=== PATIENT | male | born 1955 | race Caucasian/White ===

== ENCOUNTER → 2017-04-25 08:50 | Outpatient (CLI) | payer MEDICARE ==
[2013-08-06 14:57] VITALS: BMI 25.7
[~2017-04-25 08:50] MED LIST: ACTOS30 MG PO; ASPIRIN325 MG PO; AUGMENTIN1 TAB.SR . OR; GLIPIZIDE10 MG PO; LISINOPRIL10 MG PO; NIASPAN500 MG PO; NORCO 10/325 TA1 TA1 OR; PRAVACHOL20 MG PO
== END | disposition home or self-care (01) ==
LOC: D.CT 08:50
DX: C18.9 Malignant neoplasm of colon, unspecified (principal)

== ENCOUNTER → 2017-06-15 09:18 | Outpatient (CLI) | payer MEDICARE ==
[2013-08-06 14:57] VITALS: BMI 25.7
== END | disposition home or self-care (01) ==
LOC: D.CT 06-09 12:00 → D.RAD 06-09 13:00 → D.CT 10:30 → D.RAD 10:30
DX: C18.7 Malignant neoplasm of sigmoid colon (principal); C79.51 Secondary malignant neoplasm of bone; M25.551 Pain in right hip

== ENCOUNTER 2017-07-31 17:09 | Inpatient (IN) | payer MEDICARE ==
--- NOTE | ~2017-07-31 | HEMODYNAMI ---
PATIENT:MARÍA SALAMANCA MEDICAL RECORD: [id number] : 55 LOCATION:[facility] D.2120 ADMISSION DATE: 08/01/17 Generatedon:08/02/20179:52 Patient name: MARÍA SALAMANCA Patient #: [id number] SSN: D OB: 1955 Date of study: 08/02/2017 Page: Of Hemodynamic Procedure Report Patient Data Patient Demographics Procedure consent was obtained First Name: MARÍA Gender: Male Last Name: CHEIKH : 1955 Middle Initial: ATA Age: 61 year(s) Patient #: [id number] Race: Additional ID: [id number] Contact details [address]: [address] [place] [address] State: [place] City: [place] Zip code: [address] Past Medical History Allergies: No known allergies Admission Admission Data Admission Date: 08/01/2017 Admission Time: 9:15 Room #: D.2120 Lab Results Lab Result Date: 08/01/2017 Lab Result Time: 0:00 Biochemistry Name Units Result Min Max BUN mg/dl 18 --(---*)-- 7 18 Creatinine mg/dl 1.3 --(---*)-- 0.6 1.3 CBC Name Units Result Min Max Hemoglobin g/dl 12.2 *-(----)-- 13.5 17.5 Procedure Procedure Types Cath Procedure PCI Procedure Coronary Stent Initial Miscellaneous Procedures Moderate Sedation up to 45 minutes Procedure Description Procedure Date Procedure Date: 08/02/2017 Procedure Start Time: 9:11 Procedure End Time: 9:51 Procedure Staff Name Function Marc Stover MD Performing Physician Umm King RT Scrub Kolby Collins RN Nurse Rocio Castañeda RT Monitor Dewayne Granger RT Monitor Procedure Data Cath Procedure Fluoroscopy Diagnostic fluoroscopy Total fluoroscopy Time: 8.1 time: 8.1 min min Diagnostic fluoroscopy Total fluoroscopy dose: dose: 1244 mGy 1244 mGy Contrast Material Contrast Material Type Amount (ml) Isovue 300 114 Entry Location Entry Primary Successful Side Size Upsize Upsize Entry Closure Succes sful Closure Location (Fr) 1 (Fr) 2 (Fr) Remarks Device Remarks Femoral Left 6 Fr Exoseal artery Short Estimated blood loss: 10 ml Procedure Complications No complications Procedure Medications Medication Administration Route Dosage 0.9% NaCl I.V. 100 ml Oxygen NC 2 l/min Heparin Flush Bag added to field 2 bags (1000units/500ml NS) Lidocaine 2% added to field 20 Plavix P.O. 300 mg Versed I.V. Fentanyl I.V. 50 mcg Angiomax (bolus) I.V. 15 ml Angiomax Drip I.V. drip 35 ml/hr (250mg/50ml NS) (Standard) Nitroglycerin IC/IA I.C. 150 mcg Angiomax Drip I.V. drip 35 ml/hr (250mg/50ml NS) (Renal) Hemodynamics Rest HGB: 12.2 (g/dl) Heart Rate: 71 (bpm) Pressure Samples Time Site Value (mmHg) Purpose Heart Use Rate(bpm) 9:17 AO 125/62(88) Snapshot 75 Snapshots Pre Cath Intra NCS Post Cath Vital Signs Time Heart Resp SPO2 etCO2 [id number] NIBP (mmHg) Rhythm Pain Sedation Rate (ipm) (%) (mmHg) (mmHg) Status Level (bpm) 9:02:07 70 13 98 0 0 129/73(97) NSR 0 (11) 10(A) , No pain 9:06:50 68 19 98 0 0 133/71(103) NSR 0 (11) 10(A) , No pain 9:11:30 70 16 99 0 0 127/73(104) NSR 0 (11) 10(A) , No pain 9:16:15 73 14 95 0 0 128/69(89) NSR 0 (11) 9(A) , No pain 9:20:53 75 14 96 0 0 134/78(103) NSR 0 (11) 9(A) , No pain 9:25:36 77 19 95 0 0 136/79(107) NSR 0 (11) 9(A) , No pain 9:30:21 73 15 97 0 0 137/67(106) NSR 0 (11) 9(A) , No pain 9:35:01 77 15 97 0 0 138/78(114) NSR 0 (11) 9(A) , No pain 9:39:44 77 16 96 0 0 135/74(109) NSR 0 (11) 9(A) , No pain 9:44:24 74 18 97 0 0 122/75(99) NSR 0 (11) 9(A) , No pain 9:49:03 72 3 98 0 0 135/74(98) NSR 0 (11) 9(A) , No pain Medications Time Medication Route Dose Verified Delivered Reason Notes Effectiveness by by 8:58:04 0.9% NaCl I.V. 100 Kolby Kolby Per physician ml Dennis Collins RN RN 8:58:17 Oxygen NC 2 Kolby Kolby Per physician l/min Dennis Collins RN RN 8:58:33 Heparin Flush added 2 Kolby Kolby used for Bag to bags Dennis Collins procedure (1000units/500ml RN RN NS) 8:58:47 Lidocaine 2% added 20ml Kolby Kolby for local to vial Dennis Collins anesthetic [facility] RN RN 8:59:13 Plavix P.O. 300 Kolby Kolby for mg Dennis Collins antiplatelet RN RN therapy 9:11:35 Versed I.V. Kolby Kolby for sedation Dennis Collins RN RN 9:11:48 Fentanyl I.V. 50 Kolby Kolby for sedation mcg Dennis Collins RN RN 9:23:14 Angiomax (bolus) I.V. 15 ml Kolby Kolby for Lorigan Dennis anticoagulation RN RN 9:23:34 Angiomax Drip I.V. 35 Kolby Kolby for (250mg/50ml NS) drip ml/hr Dennis Collins anticoagulation (Standard) RN RN 9:38:02 Angiomax Drip I.V. 35 Kolby Marc for (250mg/50ml NS) drip ml/hr Dennis Stover MD anticoagulation (Renal) RN 9:38:02 Nitroglycerin I.C. 150 Kolby Marc for IC/IA mcg Dennis Stover MD vasodilation hide selector Log Time Note 8:40:33 Dewayne Granger RT(R) sent for patient. Start room use. 8:40:34 Time tracking: Regular hours 8:40:38 Plan of Care:Hemodynamics will remain stable., Cardiac rhythm will remain stable., Comfort level will be maintained., Respiratory function will remain adequate., Patient/ family verbilizes understanding of procedure., Procedure tolerated without complication., Recovers from procedure without complications.. 8:58:04 0.9% NaCl 100 ml I.V. was administered by Kolby Collins RN; Per physician; 8:58:17 Oxygen 2 l/min NC was administered by Kolby Collins RN; Per physician; 8:58:33 Heparin Flush Bag (1000units/500ml NS) 2 bags added to field was administered by Kolby Collins RN; used for procedure; 8:58:47 Lidocaine 2% 20ml vial added to field was administered by Kolby Collins RN; for local anesthetic; 8:59:13 Plavix 300 mg P.O. was administered by Kolby Collins RN; for antiplatelet therapy; 9:00:22 Patient received from PCU to CCL 1 Alert and oriented. Tansferred to table in Supine position. 9:00:23 Warm blankets applied, and mynor hugger turned on for patient comfort. 9:00:23 Correct patient and procedure confirmed by team. 9:00:25 Signed procedure consent form obtained from patient. 9:00:25 ECG and BP/O2 sat monitors applied to patient. 9:00:26 Full Disclosure recording started 9:00:29 Vital chart was started 9:00:43 Baseline sample Acquired. 9:00:59 Rhythm: sinus rhythm 9:05:35 H&P Date Dictated: 08/02/2017 Within 30 days and on chart.. 9:05:37 Pre-procedure instructions explained to patient. 9:05:39 Pre-op teaching completed and patient verbalized understanding. 9:05:42 Family in patients room. 9:05:44 Patient NPO since Midnight. 9:06:21 Patient allergic to No known allergies 9:06:24 Is the patient allergic to Iodine/contrast media? No. 9:06:30 Is patient on blood thinner?No 9:06:34 Patient diabetic? Yes. 9:06:40 Previous problem with sedation/anesthesia? No ? 9:06:53 Snore? Yes 9:06:57 Sleep apnea? Yes 9:06:58 Deviated septum? No 9:07:00 Opens mouth fully? Yes 9:07:17 If diabetic: On Metformin? Yes 9:07:29 If on Metformin: Last Dose? 07/30/2017 9:07:34 Sticks out tongue? Yes 9:07:37 Airway obstruction? No ? 9:07:39 Dentures? No ? 9:07:51 Pre procedure: left dorsailis pedis pulse 2+ Normal; easily identifiable; not easily obliterated 9:07:59 Patient pain scale 0/10 ?. 9:08:33 IV patent on arrival in left forearm with 0.9% NaCl at [facility]. 9:08:42 Lab results completed and on chart. 9:08:46 Left groin area was prepped with chlora-prep and draped in sterile fashion 9:08:54 Alarms reviewed by R. N. 9:08:54 Sharps counted by scrub and verified by R.N. 9:09:06 --------ALL STOP TIME OUT------ 9:09:08 Final Timeout: patient, procedure, and site verified with staff and physician. All members of the team are in agreement. 9:09:11 Left groin site verified by team. 9:09:15 Physical assessment completed. ASA score P 2 - A patient with mild systemic disease as per Marc Stover MD. 9:09:21 Sedation plan: IV Moderate Sedation Versed, Fentanyl 9:11:08 Procedure started. 9:11:16 Local anesthetic to left femerol artery with Lidocaine 2% by Marc Stover MD.INITIAL ACCESS ONLY 9:11:35 Versed I.V. was administered by Kolby Collins RN; for sedation; 9:11:48 Fentanyl 50 mcg I.V. was administered by Kolby Collins RN; for sedation; 9:12:07 Zero performed for pressure channel P1 9:12:28 Use device set Femoral PCI 9:12:31 Tegaderm 4 x 4 opened to sterile field. 9:12:32 Acist Manifold opened to sterile field. 9:12:35 Acist Syringe opened to sterile field. 9:12:36 Acist Hand Control opened to sterile field. 9:12:37 Bag Decanter opened to sterile field. 9:12:38 Medline Cath Pack opened to sterile field. 9:12:40 Terumo 6Fr Clementon Sheath opened to sterile field. 9:12:41 St Jose David 260cm J .035 wire opened to sterile field. 9:12:42 IPM Safety Services BasixCompak Inflation Kit opened to sterile field. 9:12:54 Lan BMW Durant II J-Tip 190cm wire opened to sterile field. 9:13:11 Cordis 6FR XBLAD 4.0 guide catheter opened to sterile field. 9:13:16 Cook 4Fr Micropuncture Set ([id number]) opened to sterile field. 9:15:24 A 6 Fr Short sheath was inserted into the Left Femoral artery 9:16:05 6 Fr XBLAD 4 guide catheter was inserted over the wire 9:16:13 Copilot Bleedback Control Valve opened to sterile field. 9:16:31 Study PCI Site: [place] OM1 has 95% stenosis. 9:16:34 ACC Pre-intervention ROSALINA Flow is 3. 9:18:12 BMW wire advanced. 9:22:04 Wire advanced across lesion. 9:23:14 Angiomax (bolus) 15 ml I.V. was administered by Kolby Collins RN; for anticoagulation; 9:23:34 Angiomax Drip (250mg/50ml NS) (Standard) 35 ml/hr I.V. drip was administered by Kolby Collins RN; for anticoagulation; 9:29:32 Inflation number: 1 A RankingHeroec Rx 2.5 x 20 balloon was prepped and advanced across the 1st Ob Flakita, then inflated to 8 RAFAL for 0:10 (min:sec). 9:32:40 Balloon removed over the wire. 9:34:14 Inflation Number: 2 A Leonid RX 2.5 x 22 stent was prepped and advanced across the 1st Ob Flakita. The stent was deployed at 13 RAFAL for 0:10 (min:sec). 9:35:40 Stent catheter was removed intact over wire. 9:38:02 Angiomax Drip (250mg/50ml NS 35 ml/hr I.V. drip was turned off . 9:38:02 Nitroglycerin IC/IA 150 mcg I.C. was administered by Marc Stover MD; for vasodilation; 9:41:14 Inflation Number: 3 A Lan Mini Vision Rx 2.25 x 15 stent was prepped and advanced across the 1st Ob Flakita. The stent was deployed at 10 RAFAL for 0:10 (min:sec). 9:41:32 Stent catheter was removed intact over wire. 9:41:46 Wire removed. 9:41:47 Guide catheter removed. 9:42:06 ACC Post-intervention ROSALINA Flow is 3. 9:42:27 Cordis 6Fr Exoseal opened to sterile field. 9:42:48 Sheath removed intact; hemostasis achieved with Exoseal to the Left Femoral artery. 9:43:07 Procedure ended.(Physican Out) 9:43:49 Fluoroscopy time 08.10 minutes. 9:43:53 Flurop Dose total: 1244 9:43:53 Fluoroscopy dose: 1244 mGy 9:43:59 Contrast amount:Isovue 300 114ml. 9:44:02 Sharps counted by scrub and verified by R.N. 9:44:07 Insertion/operative site no bleeding no hematoma. 9:44:14 Post-op/insertion site Left Femoral artery dressed using a 4 x 4 and Tegaderm. 9:44:29 Post Procedure Pulses reassessed and unchanged 9:44:40 Post-procedure physical assessment completed. ASA score P 2 - A patient with mild systemic disease as per Marc Stover MD. 9:44:44 Post procedure rhythm: unchanged. 9:44:47 Estimated blood loss: 10 ml 9:44:50 Post procedure instruction explained to patient.Patient verbalizes understanding. 9:44:53 Patient needs reinforcement of post procedure teaching. 9:45:23 Procedure type changed to Cath procedure, PCI procedure, Coronary Stent Initial, Miscellaneous Procedures, Moderate Sedation up to 45 minutes 9:47:35 Procedure and supply charges have been captured, reviewed, submitted and are correct. 9:47:50 Procedure Complication : No complications 9:51:17 Vital chart was stopped 9:51:26 See physician's report for complete and final results. 9:51:34 Report given to PCU. 9:51:39 Patient transfered to PCU with Stretcher. 9:51:45 Procedure ended. 9:51:45 Full Disclosure recording stopped 9:51:48 End room use (Document Last) Intervention Summary Intervention Notes Time ActionType Lesion and Equipment Action# Pressure Duration Attributes Used 9:29:32 Inflate 1st Ob Flakita Mozec Rx 1 8 00:10 balloon 2.5 x 20 balloon 9:34:14 Place stent 1st Ob Flakita Leonid RX 2 13 00:10 2.5 x 22 stent 9:41:14 Place stent 1st Ob Flakita Lan 3 10 00:10 Mini Vision Rx 2.25 x 15 stent Device Usage Item Name Manufacture Quantity Catalog Hospital Part Current Min imal Lot# / Number Charge Number Stock Stock Serial# Code Tegaderm 4 x 3M 1 [id number] [id number] [id number] 5 4 Acist Acist 1 03002 647870 882063 623644 5 Manifold Medical [employer] Inc Acist Syringe Acist 1 00601 272655 532595 683332 20 Medical Systems Inc Acist Hand Acist 1 49045 436349 665247 968651 5 Control Medical Systems Inc Bag Decanter Microtek 1 2002S 728225 20093 936936 5 Medical Inc. Medline Cath Cardinal 1 [id number] 249462 35702 209281 5 Pack Health Terumo 6Fr Terumo 1 [id number] 368184 705047 534608 [address] [facility] [address] 260[address] Jose David 1 616125 550337 862029 621494 30 J .035 wire Merit Merit 1 [id number] 108417 125492 694970 15 BasixCompak Medical Inflation Kit Lan BMW Lan 1 [id number] 666895 99912 108901 5 Durant II Vascular J-Tip 190cm wire Cordis 6FR Cardinal 1 [id number] 347253 530897 624803 3 XBLAD 4.0 Health guide catheter Cook 4Fr [place] Medical 1 [id number] 557027 543411 534063 5 Micropuncture Set ([id number]) Copilot Lan 1 [id number] 300857 245355 951145 5 Bleedback Vascular Control Valve Mozec Rx 2.5 Cardinal 1 [id number] 719799 03566 524605 5 UMOA88 x 20 balloon Health Leonid RX 2.5 x Medtronic 1 [id number] 422677 2441583 324744 5 [id number] 22 stent Lan Mini Lan 1 [id number] 072275 249265 259204 5 [id number] Vision Rx Vascular 2.25 x 15 stent Cordis 6Fr Cardinal 1 [id number] 793967 109299 500417 10 AudioPixels Signature Audit [place] Stage Time Signature Unsigned Intra-Procedure 08/02/2017 Rocio Castañeda 9:52:37 AM RT(R) Signatures Monitor : Rocio Castañeda Signature : RT Date : Time : Monitor : Dewayne Macon RT Signature : Date : Time : [address] [place] [address]
--- NOTE | ~2017-07-31 | HEMODYNAMI ---
PATIENT:MARÍA SALAMANCA MEDICAL RECORD: [id number] : 55 [id number] ADMISSION DATE: 07/31/17 Generatedon:08/01/20179:07 Patient name: MARÍA SALAMANCA Patient #: [id number] SSN: D OB: 1955 Date of study: 08/01/2017 Page: Of Hemodynamic Procedure Report Patient Data Patient Demographics Procedure consent was obtained First Name: MARÍA Gender: Male Last Name: CHEIKH : 1955 Middle Initial: ATA Age: 61 year(s) Patient #: [id number] Race: Additional ID: [id number] Contact details Address: [address] [place] [address] State: [place] City: [place] Zip code: [address] Admission Admission Data Admission Date: 07/31/2017 Admission Time: 18:57 Room #: D.2120 Lab Results Lab Result Date: 08/01/2017 Lab Result Time: 0:00 Biochemistry Name Units Result Min Max BUN mg/dl 18 --(---*)-- 7 18 Creatinine mg/dl 1.3 --(---*)-- 0.6 1.3 CBC Name Units Result Min Max Hemoglobin g/dl 12.2 *-(----)-- 13.5 17.5 Procedure Procedure Types Cath Procedure Diagnostic Procedure [facility] w/Coronaries Miscellaneous Procedures Moderate Sedation up to 30 minutes Procedure Description Procedure Date Procedure Date: 08/01/2017 Procedure Start Time: 8:45 Procedure End Time: 9:04 Procedure Staff Name Function Marc Stover MD Performing Physician Tamara Grady RT Scrub Antoinette Torres RN Nurse Lizeth Orr RT Monitor Procedure Data Cath Procedure Fluoroscopy Diagnostic fluoroscopy Total fluoroscopy Time: 2.3 time: 2.3 min min Diagnostic fluoroscopy Total fluoroscopy dose: 676 dose: 676 mGy mGy Contrast Material Contrast Material Type Amount (ml) Isovue 300 85 Entry Location Entry Primary Successful Side Size Upsize Upsize Entry Closure Succes sful Closure Location (Fr) 1 (Fr) 2 (Fr) Remarks Device Remarks Femoral Right 5 Fr Exoseal artery Estimated blood loss: 5 ml Diagnostic catheters Device Type Used For End Catheter Placement Cordis 5Fr Pigtail LV Angiography Catheter (MP) Cordis 5Fr JL 4.0 Left Coronary Catheter (MP) Angiography Cordis 5Fr 3DRC Catheter Right Coronary (MP) Angiography Procedure Complications No complications Procedure Medications Medication Administration Route Dosage Oxygen NC 2 l/min Lidocaine 2% added to field 20 Heparin Flush Bag added to field 2 bags (1000units/500ml NS) 0.9% NaCl I.V. 100 ml/hr Versed I.V. 1.5 mg Fentanyl I.V. 25 mcg Versed I.V. 0.5 mg Hemodynamics Rest HGB: 12.2 (g/dl) Heart Rate: 73 (bpm) Pressure Samples Time Site Value (mmHg) Purpose Heart Use Rate(bpm) 8:50 LV 129/3,15 EDP 73 Gradients Valve Time Site Site Mean SEP/DFP Peak To Heart Use 1 2 (mmHg) (sec/min) Peak Rate (mmHg) (bpm) Aortic 8:50 LV AO 77 Snapshots Pre Cath Intra NCS Post Cath Vital Signs Time Heart Resp SPO2 NIBP (mmHg) Rhythm Pain Sedation Rate (ipm) (%) Status Level (bpm) 8:36:02 72 17 98 142/78(109) NSR 0 (11) 10(A) , No pain 8:40:17 72 14 96 138/86(109) NSR 0 (11) 10(A) , No pain 8:44:27 77 14 96 134/87(105) NSR 0 (11) 10(A) , No pain 8:48:43 71 13 98 128/74(102) NSR 0 (11) 9(A) , No pain 8:52:55 73 15 98 130/82(107) NSR 0 (11) 9(A) , No pain 8:57:09 72 15 98 125/76(102) NSR 0 (11) 9(A) , No pain 9:01:21 71 16 98 120/73(98) NSR 0 (11) 10(A) , No pain 9:06:06 75 15 98 117/73(93) NSR 0 (11) 10(A) , No pain Medications Time Medication Route Dose Verified Delivered Reason Notes Effec tiveness by by 8:37:15 Oxygen NC 2 Marc Buffie used for l/min Ck Torres RN procedure MD 8:37:22 Lidocaine 2% added 20ml Marc Marc for local to vial Ck Stover MD anesthetic field MD 8:37:27 Heparin Flush added 2 Marc Marc used for Bag to bags Ck Stover MD procedure (1000units/500ml field NS) 8:37:36 0.9% NaCl I.V. 100 Marc Buffie Per ml/hr Ck Torres RN physician 8:45:22 Versed I.V. 1.5 Marc Buffie for mg Ck Torres RN sedation 8:45:27 Fentanyl I.V. 25 Marc Buffie for mcg Ck Torres RN sedation 8:58:04 Versed I.V. 0.5 Marc Buffie for mg Ck Torres RN sedation Procedure Log Time Note 7:34:02 Informed consent obtained and on chart 8:14:58 Diagnostic Cath Status : Elective 8:15:19 Tamara Grady RT(R) sent for patient. Start room use. 8:15:20 Time tracking: Regular hours 8:15:24 Plan of Care:Hemodynamics will remain stable., Cardiac rhythm will remain stable., Comfort level will be maintained., Respiratory function will remain adequate., Patient/ family verbilizes understanding of procedure., Procedure tolerated without complication., Recovers from procedure without complications.. 8:29:14 Patient received from Med II to CCL 2 Alert and oriented. Tansferred to table in Supine position. 8:29:15 Warm blankets applied, and mynor hugger turned on for patient comfort. 8:29:15 Correct patient and procedure confirmed by team. 8:29:16 ECG and BP/O2 sat monitors applied to patient. 8:34:56 Baseline sample Acquired. 8:34:56 Vital chart was started 8:35:01 Rhythm: sinus rhythm 8:35:02 Full Disclosure recording started 8:35:14 H&P Date Dictated: 08/01/2017 New H&P dictated by physician.. 8:35:15 Pre-procedure instructions explained to patient. 8:35:16 Pre-op teaching completed and patient verbalized understanding. 8:35:17 Family in waiting room. 8:35:18 Patient NPO since Midnight. 8:35:25 Is the patient allergic to Iodine/contrast media? No. 8:35:27 Was the patient premedicated? No 8:35:29 Is patient on blood thinner?Yes 8:35:32 ACC The patient was administered the following blood thiners within the last 24 hours: ACCPlavix 8:35:34 Patient diabetic? Yes. 8:35:35 If diabetic: On Metformin? Yes 8:35:37 If on Metformin: Last Dose? 07/31/2017 8:35:54 Previous problem with sedation/anesthesia? Yes urinary retention with general anesthesia 8:35:56 Snore? Yes 8:35:57 Sleep apnea? Yes 8:35:59 Deviated septum? No 8:35:59 Opens mouth fully? Yes 8:36:00 Sticks out tongue? Yes 8:36:02 Airway obstruction? No ? 8:36:48 Dentures? No ? 8:37:15 Oxygen 2 l/min NC was administered by Antoinette Torres RN; used for procedure; 8:37:22 Lidocaine 2% 20ml vial added to field was administered by Marc Stover MD; for local anesthetic; 8:37:27 Heparin Flush Bag (1000units/500ml NS) 2 bags added to field was administered by Marc Stover MD; used for procedure; 8:37:36 0.9% NaCl 100 ml/hr I.V. was administered by Antoinette Torres RN; Per physician; 8:38:09 Pre procedure: right dorsailis pedis pulse 1+ Palpable, but thready & weak; easily obliterated 8:38:11 Pre procedure: left dorsailis pedis pulse 1+ Palpable, but thready & weak; easily obliterated 8:38:51 IV patent on arrival in left antecubital with 0.9% NaCl at [facility]. 8:40:03 Lab results completed and on chart. 8:40:07 Right groin area was prepped with chlora-prep and draped in sterile fashion 8:40:09 Alarms reviewed by R. N. 8:40:09 Sharps counted by scrub and verified by R.N. 8:40:12 Physician arrived 8:40:12 --------ALL STOP TIME OUT------ 8:40:13 Final Timeout: patient, procedure, and site verified with staff and physician. All members of the team are in agreement. 8:40:16 Right groin site verified by team. 8:40:21 Physical assessment completed. ASA score P 2 - A patient with mild systemic disease as per Marc Stover MD. 8:40:24 Sedation plan: IV Moderate Sedation Versed, Fentanyl 8:40:31 Use device set Femoral Dx 8:40:32 Acist Syringe opened to sterile field. 8:40:33 Bag Decanter opened to sterile field. 8:40:33 Medline Cath Pack opened to sterile field. 8:40:34 Terumo 5Fr Mesick Sheath opened to sterile field. 8:40:34 [facility] Jose David 260cm J .035 wire opened to sterile field. 8:40:35 Acist Hand Control opened to sterile field. 8:40:36 Acist Manifold opened to sterile field. 8:40:36 Diagnostic Infinity 5Fr Multipack catheter opened to sterile field. 8:40:37 Tegaderm 4 x 4 opened to sterile field. 8:41:15 Lab Result : BUN 18 mg/dl 8:41:15 Lab Result : Creatinine 1.3 mg/dl 8:41:15 Lab Result : Hemoglobin 12.2 g/dl 8:43:25 Zero performed for pressure channel P1 8:45:22 Versed 1.5 mg I.V. was administered by Antoinette Torres RN; for sedation; 8:45:27 Fentanyl 25 mcg I.V. was administered by Antoinette Torres RN; for sedation; 8:45:49 Procedure started. 8:45:53 Local anesthetic to right femoral artery with Lidocaine 2% by Marc Stover MD.INITIAL ACCESS ONLY 8:46:14 A 5 Fr sheath was inserted into the Right Femoral artery 8:49:10 A Cordis 5Fr Pigtail Catheter (MP) was advanced over the wire and used for LV Angiography. 8:50:49 LV hemodynamics recorded. 8:50:50 LV gram done using FREITAS 8:50:53 Injector settings: Ml/sec: 5, Volume: 15, 8:51:16 EF : 60 % 8:51:38 Catheter removed. 8:51:47 A Cordis 5Fr JL 4.0 Catheter (MP) was advanced over the wire and used for Left Coronary Angiography. 8:52:33 LCA angiography performed. 8:52:35 Injector settings: Ml/sec: 3, Volume: 6, 8:56:18 Catheter removed. 8:56:23 A Cordis 5Fr 3DRC Catheter (MP) was advanced over the wire and used for Right Coronary Angiography. 8:57:51 RCA angiography performed. 8:57:55 Injector settings: Ml/sec: 3, Volume: 6, 8:58:04 Versed 0.5 mg I.V. was administered by Antoinette Torres RN; for sedation; 8:58:58 Right subclavian angiography performed 9:00:35 GERBER angiography performed. 9:00:48 Catheter removed. 9:01:39 Cordis 5Fr Exoseal opened to sterile field. 9:01:52 Sheath removed intact; hemostasis achieved with Exoseal to the Right Femoral artery. 9:01:55 Procedure ended.(Physican Out) 9:02:04 Fluoroscopy time 02.30 minutes. 9:02:12 Flurop Dose total: 676 9:02:12 Fluoroscopy dose: 676 mGy 9:03:08 Contrast amount:Isovue 300 85ml. 9:03:10 Sharps counted by scrub and verified by R.N. 9:03:13 Insertion/operative site no bleeding no hematoma. 9:03:16 Post-op/insertion site Right Femoral artery dressed using a 4 x 4 and Tegaderm. 9:03:18 Post right femoral artery:stable 9:03:23 Post procedure rhythm: unchanged. 9:03:25 Estimated blood loss: 5 ml 9:03:26 Post procedure instruction explained to patient.Patient verbalizes understanding. 9:03:27 Patient needs reinforcement of post procedure teaching. 9:03:51 Procedure type changed to Cath procedure, Diagnostic procedure, LHC, LHC w/Coronaries, Miscellaneous Procedures, Moderate Sedation up to 30 minutes 9:03:53 Procedure and supply charges have been captured, reviewed, submitted and are correct. 9:03:58 Procedure Complication : No complications 9:04:00 Vital chart was stopped 9:04:00 See physician's report for complete and final results. 9:04:11 Report given to [facility]. 9:04:13 Patient transfered to [facility] with Stretcher. 9:04:15 Procedure ended. 9:04:15 Full Disclosure recording stopped 9:04:43 End room use (Document Last) Device Usage Item Name Manufacture Quantity Catalog Hospital Part Current Minimal Lo t# / Number Charge Number Stock Stock Serial# Code Acist Acist 1 68046 674405 377083 339754 20 Syringe [employer] Inc Bag Microtek 1 2002S 834385 92270 037354 5 Decanter [employer] Inc. Medline Cardinal 1 [id number] 488417 26092 709775 5 Cath Pack Health Terumo 5Fr Terumo 1 [id number] 152493 065254 819303 [address] [facility] 1 077399 752741 130086 626447 30 260cm J .035 wire Acist Hand Acist 1 38051 070203 368494 903762 5 Control Medical Systems Inc Acist Acist 1 24671 780146 725282 405556 5 Manifold Medical Systems Inc Diagnostic Cardinal 1 [id number] 507182 94790 200407 30 Infinity Health 5Fr Multipack catheter Tegaderm 4 3M 1 1626W 148395 990934 462235 5 x 4 Cordis 5Fr Cardinal 1 [id number] 5 Pigtail Health Catheter (MP) Cordis 5Fr Cardinal 1 813599 5 JL 4.0 Health Catheter (MP) Cordis 5Fr Cardinal 1 872474 5 3DRC Health Catheter (MP) Cordis 5Fr Cardinal 1 EX500 255868 895512 579137 10 [employer] Health Signature Audit [place] Stage Time Signature Unsigned Intra-Procedure 08/01/2017 Lizeth Orr 9:07:05 AM RT(R) Signatures Monitor : Lizeth Orr RT Signature : Date : Time : [facility] [address] [place] [address]
[2017-07-31 02:08] VITALS: BP 159/90
[2017-07-31 17:38] LABS: BASOPHILS 0.2 % (0-2); EOSINOPHILS 3.9 % (0-7); HEMATOCRIT 37.5 % (42.0-54.0); HEMOGLOBIN 12.2 g/dL (13.5-17.5); IMMATURE GRANULOCYTES 0.4 % (0-5); MCH 27.6 pg (26.0-34.0); MCHC 32.5 g/dL (31.0-37.0); MCV 84.8 fL (80.0-100.0); MEAN PLATELET VOLUME 9.8 fL (7.4-10.4); MONOCYTES 4.7 % (2-11); NEUTROPHILS 71.8 % (40-80); RBC 4.42 10x6/uL (4.20-6.10); RDW 13.8 % (11.5-14.5); WBC 11.4 10x3/uL (4.8-10.8)
[2017-07-31 17:40] LABS: PLATELET COUNT 242 10x3/uL (130-400)
[2017-07-31 17:54] LABS: ALBUMIN 3.3 g/dL (3.4-5.0); ALKALINE PHOSPHATASE 60 U/L (46-116); ALT (SGPT) 21 U/L (10-68); BILIRUBIN - TOTAL 0.26 mg/dL (0.2-1.3); CALC OSMOLALITY 277 mosm/kg (275-300); CALCIUM 9.3 mg/dL (8.5-10.1); CARBON DIOXIDE 23.8 mmol/L (21.0-32.0); CHLORIDE - SERUM 101 mmol/L (98-107); CREATININE - SERUM 1.3 mg/dL (0.6-1.3); POTASSIUM - SERUM 3.7 mmol/L (3.5-5.1); SODIUM 135 mmol/L (136-145); UREA NITROGEN 18 mg/dL (7-18); eGFR NON AFRICAN AMERICAN 60 mL/min (90-120)
[2017-07-31 17:55] LABS: GLUCOSE 209 mg/dL (74-106)
[2017-07-31 18:12] LABS: CKMB 1.2 U/L (0.0-3.6); CREATINE KINASE 113 UL (21-232)
[2017-07-31 18:15] LABS: TROPONIN-I 0.084 ng/mL (0.000-0.060)
[2017-07-31 18:57] LABS: MAGNESIUM - SERUM 2.2 mg/dL (1.8-2.4); PRO BNP 76 pg/mL (0-125)
--- NOTE | 2017-07-31 20:00 | NUR ---
PT RECIEVED TO ROOM 2120 @ 1999. ALERT/ORIENTED AND AMBULATORY. ASSISTED TO BED. TELEMETRY APPLIED. PT HAS COLOSTOMY IN LLQ OF ABDOMEN. PIV SALINE LOCKED IN LEFT A/C. PT HAS UNACCESSED PORT IN RIGHT CHEST WALL. SINCE HE HAS WORKING PIV, PORT WILL NOT BE ACCESSED AT THIS TIME. O2 @ 2L/NC FOR NONLABORED RESPIRATIONS. ADMISSION ASSESSMENT AND HISTORY COMPLETED. CALL LIGHT IN REACH. INITIATE PLAN OF CARE.
[2017-07-31 23:35] LABS: CREATINE KINASE 368 UL (21-232)
[2017-07-31 23:36] LABS: CKMB 35.1 U/L (0.0-3.6); TROPONIN-I 10.183 ng/mL (0.000-0.060)
--- NOTE | 2017-07-31 23:53 | NUR ---
PHONE CALL TO DR CUELLAR AND NOTIFIED OF TREMENDOUS INCREASE OF IN ALL CARDIAC ENZYMES. TROPONIN IS NOW 10.183, CKMB 35.1 AND CK 368. PT IS PAIN FREE, CURRENTLY SLEEPING. SR PER TELEMETRY. REVIEWED WITH MD THAT ER STATED THEY HAD GIVEN HIM A PLAVIX DOSE WHILE THERE. STATES TO CONTINUE TO MONITOR AND PT STILL ON FOR ANGIOGRAM IN AM.
[2017-08-01] VITALS (7 sets, daily range): BP systolic 125–154; BP diastolic 72–88; BMI 30.4
[2017-08-01] MEDS ORDERED: GLUCOPHAGE500 MG PO (03:11)
[2017-08-01] MEDS ORDERED: LISINOPRIL5 MG PO (03:12)
[2017-08-01] MEDS ORDERED: BAYER CHEWABLE81 MG PO (03:13)
[2017-08-01 06:38] LABS: BASOPHILS 0.1 % (0-2); EOSINOPHILS 4.1 % (0-7); HEMATOCRIT 39.3 % (42.0-54.0); HEMOGLOBIN 12.7 g/dL (13.5-17.5); IMMATURE GRANULOCYTES 0.3 % (0-5); LYMPHOCYTES 24.8 % (15-50); MCH 27.4 pg (26.0-34.0); MCHC 32.3 g/dL (31.0-37.0); MCV 84.7 fL (80.0-100.0); MEAN PLATELET VOLUME 9.8 fL (7.4-10.4); MONOCYTES 6.1 % (2-11); NEUTROPHILS 64.6 % (40-80); PLATELET COUNT 252 10x3/uL (130-400); RBC 4.64 10x6/uL (4.20-6.10); WBC 11.1 10x3/uL (4.8-10.8)
[2017-08-01 07:19] LABS: CALCIUM 9.3 mg/dL (8.5-10.1); CARBON DIOXIDE 24.3 mmol/L (21.0-32.0); CHLORIDE - SERUM 101 mmol/L (98-107); CKMB 42.8 U/L (0.0-3.6); CREATINE KINASE 404 UL (21-232); CREATININE - SERUM 1.3 mg/dL (0.6-1.3); POTASSIUM - SERUM 3.9 mmol/L (3.5-5.1); SODIUM 135 mmol/L (136-145); UREA NITROGEN 16 mg/dL (7-18); eGFR NON AFRICAN AMERICAN 60 mL/min (90-120)
[2017-08-01 07:20] LABS: CALC OSMOLALITY 273 mosm/kg (275-300); GLUCOSE 154 mg/dL (74-106); TROPONIN-I 11.448 ng/mL (0.000-0.060)
--- NOTE | 2017-08-01 07:30 | NUR ---
RECEIVED PT IN BED AAOX4 RESP UNLABORED DENIES ANY NEEDS OR DISCOMFORT AT THIS TIME NAD NOTED
--- NOTE | 2017-08-01 08:25 | NUR ---
PT TO DIRECTOR OPERATIONS BROADCAST VIA BED
--- NOTE | 2017-08-01 09:30 | NUR ---
RECEIVED PT BACK FROM 7TH GRADE TEACHER VSS DRSG TO RT GROIN C/D/I PPPX4 NAD NOTED
--- NOTE | 2017-08-01 11:26 | NUR ---
FSBS 160 REGULAR INSULIN 2 UNITS GIVEN SQ LT ARM
[2017-08-01 14:46] LABS: PLT FUNCT.(P2Y12) PLAVIX 163 PRU (194-418)
--- NOTE | 2017-08-01 17:06 | NUR ---
FSBS 136
[2017-08-02] VITALS: BP 123/75
[2017-08-02 04:28] VITALS: BP 106/59
--- NOTE | 2017-08-02 07:30 | NUR ---
ASSESSMENT COMPLETED. TELEMERTY SR 73. O2 AT 2 L/M PER NC. DENIES ANY NEEDS AT PRESENT TIME. COLOSTOMY TO RIGHT LOWER ABD. GOING TO CRITICAL CARE CNS.
[2017-08-02 09:05] VITALS: BP 124/69
--- NOTE | 2017-08-02 10:40 | NUR ---
BACK FROM COMPUTER CLERK. RIGHT GROIN SOFT WITH DRSG DRY AND INTACT. PPP. V/S STABLE. TELEMERTY SHOWS SR. DENIES ANY NEEDS. CALL LIGHT IN REACH WITH SR UP. FAMILY AT BEDSIDE
[2017-08-02 11:18] LABS: HEPATITIS C ANTIBODY 0.1 (0.0-0.9)
[2017-08-02 12:16] VITALS: BP 104/57
--- NOTE | 2017-08-02 12:57 | HP ---
PATIENT: MARÍA SALAMANCA MEDICAL RECORD: [id number] ACCOUNT: [id number] LOCATION[facility] : 55 ADMISSION DATE: 08/01/17 HISTORY AND PHYSICAL EXAMINATION DATE OF ADMISSION: 07/31/2017 CHIEF COMPLAINT: Chest pain. HISTORY OF PRESENT ILLNESS: This is a 61-year-old white male with a history of diabetes, hypertension, hyperlipidemia, colon cancer and previous stroke, who presented complaining of acute onset of chest pain with radiation to the left arm. He felt nauseated, but could not throw up. He was brought to the ER, his vital signs were fairly stable. EKG showed normal sinus rhythm with a left axis deviation. His first troponin level was 0.084, but it went up significantly over the next 2 blood draws for that. He was admitted with non-Q-wave myocardial infarction. 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 PAST SURGICAL HISTORY: Partial colectomy with colostomy, he is followed by Dr. Santiago for his colon cancer. He has also had right hip nail procedure by Dr. De Jesus for metastatic cancer and pathologic fracture there. ALLERGIES: None known. HOME MEDICATIONS: Include lisinopril 5 mg a day, Niaspan 500 mg a day, pravastatin 20 mg at bedtime, aspirin 81 mg a day, Actos 30 mg a day, glipizide 10 mg, metformin 500 mg twice a day and [place] p.r.n. pain. HABITS: He never smoked. No history of alcohol or drug use. FAMILY HISTORY: Father at 60 of colon cancer. Mother at 62 of a stroke. SOCIAL HISTORY: He is single, retired local company refrigerated truck driver. REVIEW OF SYSTEMS: GENERAL: No major weight changes. HEENT: No particular sinus or allergy problems. RESPIRATORY: No history of emphysema or asthma. CARDIAC: No known coronary disease. GASTROINTESTINAL: Occasional heartburn. MUSCULOSKELETAL: No significant joint aches or pains. NEUROLOGIC: No headaches or seizures. PSYCHIATRIC: No depression or melancholia. PHYSICAL EXAMINATION: VITAL SIGNS: Temperature 97.0, pulse 70, respirations 16, blood pressure 125/72, O2 sat 97%. GENERAL: He does not appear in acute distress. He is awake and alert. HEENT: Grossly within normal limits. HISTORY AND PHYSICAL [id number] MARÍA SALAMANCA NECK: Supple. No JVD or bruit. HEART: Regular rate and rhythm without murmur. LUNGS: Clear. ABDOMEN: Soft, flat, nontender. EXTREMITIES: No edema. LABORATORY DATA: EKG showed normal sinus rhythm, left axis deviation. CBC: White count 11,400, hemoglobin 12.2, hematocrit 37.5. CMP is all okay except glucose 209; CK went from 113 initially to 368 and then to 404; CK-MB went from 1.2 up to 35.1 and 42.8. ProBNP 76, troponin went from 0.084 to 10.183 and then 11.448. IMPRESSION: 1. Non-Q-wave myocardial infarction. 2. Diabetes. 3. Hypertension. 4. Hyperlipidemia. 5. History of stroke. 6. History of colon cancer. PLAN: He was taken to the poultry farm laborer earlier this morning. His left main showed mild disease, LAD showed 60% lesion at the ostial take-off and the mid 60%-70% blockage and an 80% blockage distally, first diagonal had a 90% blockage. Circumflex at the first OM, there was 90%-95% blockage. In the mid circumflex, there was 80% blockage. In the RCA, there was 100% blockage in the mid artery with collateral flow. Impression of angiogram showed severe multivessel disease with preserved left ventricular ejection fraction. Plan is to continue post-angiogram orders. Dr. Squires has been consulted. We will monitor his sugar. Other tests and procedures as warranted. TRANSINT:[id number] Voice Confirmation ID: [id number] DOCUMENT ID: [id number] MARÍA ANTONIO MD at 1257 CC: [id number] DICTATION DATE: 08/01/17 1343 RADIO JOURNALIST: 08/01/17 1415 ADM IN [place] [id number] [place] [id number]
[2017-08-02 13:04] LABS: BASOPHILS 0.2 % (0-2); EOSINOPHILS 6.3 % (0-7); HEMOGLOBIN 11.3 g/dL (13.5-17.5); IMMATURE GRANULOCYTES 0.1 % (0-5); LYMPHOCYTES 24.8 % (15-50); MCH 27.8 pg (26.0-34.0); MCHC 32.3 g/dL (31.0-37.0); MEAN PLATELET VOLUME 9.4 fL (7.4-10.4); MONOCYTES 6.1 % (2-11); NEUTROPHILS 62.5 % (40-80); RBC 4.07 10x6/uL (4.20-6.10)
[2017-08-02 13:05] LABS: PLATELET COUNT 194 10x3/uL (130-400)
[2017-08-02 13:20] LABS: ANION GAP 11.4 mmol/L (8-16); CALCIUM 7.9 mg/dL (8.5-10.1); CARBON DIOXIDE 24.9 mmol/L (21.0-32.0); CREATININE - SERUM 1.1 mg/dL (0.6-1.3); POTASSIUM - SERUM 4.3 mmol/L (3.5-5.1)
[2017-08-02 15:25] VITALS: BP 121/61
--- NOTE | 2017-08-02 15:27 | NUR ---
LYING QUIETLY WITH FAMILY AT BEDSIDE. right groin soft with drsg dry and intact. will monitor
[2017-08-02 19:00] VITALS: BP 130/66
--- NOTE | 2017-08-02 19:12 | NUR ---
ANSWERED CL, PT STATED THAT HE IS HAVING A HARD TIME URINATING, PT ASKING FOR A SYED CATH TO BE PLACED, STATED THAT HE HAS HAD A PROBLEM IN THE PAST WITH HIS KIDNEYS BEING SLUGISH AFTER RECIEVING ANESTHESIA ( PT WENT TO [facility] TODAY) CALL PLACED TO DR ANTONIO TO ASK FOR AN ORDER TO PLACE SYED CATH.
--- NOTE | 2017-08-02 20:12 | NUR ---
Juwan MARROQUIN RN AT BED SIDE TO ATTEMPT SYED PLACEMENT, WILL CONT TO MONITOR.
--- NOTE | 2017-08-02 21:39 | NUR ---
HS MEDS GIVEN WITH FRESH ICE WATER. MORPHINE 4 MG GIVEN FOR C/O PAIN. RATES PAIN AT A 7 ON PAIN SCALE. BS 143, NO COVERAGE GIVEN PER S/S. WILL CONT TO MONITOR.
--- NOTE | 2017-08-02 22:15 | NUR ---
Beena VOSS RN FROM ICU AT BED SIDE, COUDE SYED CATH PLACED USING STERILE TECHNIQUE. PT TOLERATED WELL.
[2017-08-03] VITALS: BP 120/64
--- NOTE | 2017-08-03 00:09 | NUR ---
MANAGER NIGHT AT BED SIDE TO OBTAIN VITALS.
[2017-08-03 04:00] VITALS: BP 108/60
--- NOTE | 2017-08-03 04:51 | NUR ---
MORPHINE 4 MG GIVEN FOR C/O PAIN TO RIGHT HIP, RATES PAIN AT AN 8 ON PAIN SCALE.
--- NOTE | 2017-08-03 05:01 | NUR ---
PT RESTING COMFORTABLY, CONTINUE TO MONITOR CLOSELY.
[2017-08-03 08:11] VITALS: BP 110/56
[2017-08-03 12:10] VITALS: BP 101/56
[2017-08-03] MEDS ORDERED: ASPIRIN325 MG PO (13:27)
[2017-08-03] MEDS ORDERED: PLAVIX75 MG PO (13:28)
[2017-08-03] MEDS ORDERED: LOPRESSOR25 MG PO (13:28)
[2017-08-03] MEDS ORDERED: LIPITOR20 MG PO (13:28)
--- NOTE | 2017-08-03 14:04 | NUR ---
IV, TELEMETRY AND SYED CATH DCD FOR DC HOME.
--- NOTE | 2017-08-03 14:36 | NUR ---
Patient Name: MARÍA SALAMANCA Admission Status: ER Accout number: [id number] Admission Date: 08-01-2017 : 1955 Admission Diagnosis:NON-ST ELEVATION (NSTEMI) MYOCARDIAL INFARCTION Attending: MARÍA ANTONIO Current LOS: 2 Anticipated DC Date: 08-03-2017 Planned Disposition: Home Primary Insurance: MEDICARE A & B Discharge Planning Comments: * Is the patient Alert and Oriented? Yes 0 * How many steps to enter\exit or inside your home? 2 0 * PCP DR ANTONIO 0 * Pharmacy [facility] 0 * Preadmission Environment Home Alone 0 * ADLs Independent 0 * Equipment [employer] Supp[employer] Walker 0 * Other Equipment [facility] MED[facility] EQUIPMENT PROVIDER 0 * List name and contact numbers for known caregivers / representatives who currently or will assist patient after discharge: ANSHU KAUFMAN, COUSIN, KAROLYN OR AYAD NAGY, COUSIN, 0 * Community resources currently utilized None 0 * Please name any agencies selected above. NONE 0 * Additional services required to return to the preadmission environment? No 0 * Can the patient safely return to the preadmission environment? Yes 0 * Has this patient been hospitalized within the prior 30 days at any hospital? No 0 CM MET WITH PT IN ROOM TO DISCUSS DISCHARGE PLANNING AND NEEDS. PT REPORTS LIVING AT HOME INDEPENDENTLY AND ALONE. PT HAS OSTOMY SUPPLIES AND A WALKER; PT DOES NOT USE THE WALKER. PROVIDER IS [employer] FOR MEDICAL EQUIPMENT. PT HAS NO OUTSIDE SERVICES ASSISTING IN THE HOME. CM DISCUSSED AVAILABILITY OF HOME HEALTH, REHAB SERVICES AND MEDICAL EQUIPMENT. PT DENIES DISCHARGE NEEDS, REPORTS HIS COUSIN WILL PICK HIM UP FOR DISCHARGE HOME SHORTLY. IMPORTANT MESSAGE FROM MEDICARE PROVIDED AND EXPLAINED. BRIDAL SALES CONSULTANT NURSE NOTIFIED. Demonstrator Sales: Kyle Berrios
--- NOTE | 2017-08-03 15:06 | NUR ---
DC PLANS GIVEN. UNDERSTANDING VOICED. ESCORTED TO CAR BY W/C.
== END 2017-08-03 15:07 | disposition home or self-care (01) | DRG 247 ==
LOC: D.ER 17:09 → OBSVTIME 18:57 → D.M2 18:57
PROVIDERS: Emergency Medicine; Internal Medicine Cardiovascular Disease; Surgery; ADMIT Family Medicine
PROC: B2111ZZ Fluoroscopy of Multiple Coronary Arteries using Low Osmolar Contrast (ICD-10-PCS; 2017-08-01)
PROC: B2151ZZ Fluoroscopy of Left Heart using Low Osmolar Contrast (ICD-10-PCS; 2017-08-01)
PROC: 4A023N7 Measurement of Cardiac Sampling and Pressure, Left Heart, Percutaneous Approach (ICD-10-PCS; 2017-08-01)
PROC: B3121ZZ Fluoroscopy of Left Subclavian Artery using Low Osmolar Contrast (ICD-10-PCS; 2017-08-01)
PROC: B3111ZZ Fluoroscopy of Right Brachiocephalic-Subclavian Artery using Low Osmolar Contrast (ICD-10-PCS; 2017-08-01)
PROC: B2181ZZ Fluoroscopy of Left Internal Mammary Bypass Graft using Low Osmolar Contrast (ICD-10-PCS; principal; 2017-08-01 09:00)
PROC: 027034Z Dilation of Coronary Artery, One Artery with Drug-eluting Intraluminal Device, Percutaneous Approach (ICD-10-PCS; 2017-08-02)
PROC: 02703DZ Dilation of Coronary Artery, One Artery with Intraluminal Device, Percutaneous Approach (ICD-10-PCS; 2017-08-02)
DX: I21.4 Non-ST elevation (NSTEMI) myocardial infarction (principal); E11.9 Type 2 diabetes mellitus without complications; I25.10 Atherosclerotic heart disease of native coronary artery without angina pectoris; E78.00 Pure hypercholesterolemia, unspecified; E78.5 Hyperlipidemia, unspecified; I10 Essential (primary) hypertension; Z86.73 Personal history of transient ischemic attack (TIA), and cerebral infarction without residual deficits; Z85.038 Personal history of other malignant neoplasm of large intestine

== ENCOUNTER → 2017-08-18 16:39 | Outpatient (CLI) | payer MEDICARE ==
[2017-08-01 10:27] VITALS: BMI 30.4
[~2017-08-18 16:39] MED LIST changes: +BAYER CHEWABLE81 MG PO; +GLUCOPHAGE500 MG PO; +LIPITOR20 MG PO; +LISINOPRIL5 MG PO; +LOPRESSOR25 MG PO; +PLAVIX75 MG PO
[2017-08-18 16:55] LABS: ALBUMIN 3.7 g/dL (3.4-5.0); BILIRUBIN - DIRECT 0.17 mg/dL (0.00-0.30); BILIRUBIN - INDIRECT 0.49 mg/dL (0.00-1.00); BILIRUBIN - TOTAL 0.66 mg/dL (0.2-1.3); CHOL - HDL RATIO 6.1 ratio (2.3-4.9); LDL-HDL RATIO 3.9 ratio (1.5-3.5); PROTEIN - SERUM 8.3 g/dL (6.4-8.2)
== END | disposition home or self-care (01) ==
LOC: D.LABREF 16:39
PROVIDERS: Internal Medicine Cardiovascular Disease
DX: I25.10 Atherosclerotic heart disease of native coronary artery without angina pectoris (principal)

== ENCOUNTER → 2017-09-01 18:32 | Outpatient (CLI) | payer MEDICARE ==
[2017-08-01 10:27] VITALS: BMI 30.4
[2017-09-01 19:06] LABS: CHOL - HDL RATIO 3.2 ratio (2.3-4.9); LDL-HDL RATIO 1.5 ratio (1.5-3.5)
== END | disposition home or self-care (01) ==
LOC: D.LABREF 18:32
PROVIDERS: Internal Medicine Cardiovascular Disease
DX: I25.10 Atherosclerotic heart disease of native coronary artery without angina pectoris (principal)

== ENCOUNTER → 2018-01-30 17:43 | Outpatient (CLI) | payer MEDICARE ==
[2017-08-01 10:27] VITALS: BMI 30.4
[2018-01-30 20:33] LABS: ALBUMIN 3.3 g/dL (3.4-5.0); BILIRUBIN - DIRECT 0.23 mg/dL (0.00-0.30); BILIRUBIN - INDIRECT 0.5 mg/dL (0.00-1.00); BILIRUBIN - TOTAL 0.73 mg/dL (0.2-1.3); LDL-HDL RATIO 4.5 ratio (1.5-3.5)
== END | disposition home or self-care (01) ==
LOC: D.LABREF 17:43
PROVIDERS: Internal Medicine Cardiovascular Disease
DX: E78.5 Hyperlipidemia, unspecified (principal); I10 Essential (primary) hypertension

== ENCOUNTER → 2018-02-27 08:18 | Outpatient (CLI) | payer MEDICARE ==
[2017-08-01 10:27] VITALS: BMI 30.4
--- NOTE | ~2018-02-27 | EC ---
PATIENT:MARÍA SALAMANCA DATE OF SERVICE: 02/27/18 SEX: M MEDICAL RECORD: [id number] DATE OF : 55 [facility] AGE OF PATIENT: 62 ADMISSION DATE: 02/27/18 REFERRING PHYSICIAN: INTERPRETING PHYSICIAN: NAIMA CUELLAR MD ECHOCARDIOGRAM REPORT ECHO CHARGES 4 ECHO COMPLETE Date: 02/27 CLINICAL DIAGNOSIS: CAD/CHF ECHOCARDIOGRAPHIC MEASUREMENTS (adult normal given) AC root (d.<3.7cm) 3.7 cm LV Septum d (<1.2 cm> 1.2 cm Valve Excursion 2.0 cm LV Septum (systole) 1.9 cm Left Atria (s.<4.0cm> 3.2 cm LVPW d(<1.2cm) 1.2 cm RV (d.<2.3cm) 2.6 cm LVPW (sytole) 1.8 cm LV diastole(<5.6CM) 5.7 cm MV E-F(>70mm/sec) cm LV systole 3.6 cm LVOT Diameter 2.0 cm MV exc.(>10mm) cm Est.ejection fraction (50-75%) % DOPPLER: LVIT cm/sec A 66.0 cm/sec E 80.0 cm/sec LA cm/sec RVSP 29.3 mmHg LVOT 102 cm/sec AOP1/2T m/s Asc. Ao 122 cm/sec RVOT 64.0 cm/sec RA cm/sec PA 76.0 cm/sec AV Gradient Peak 6.0 mmHg AV Mean 3.2 mmHg AV Area 2.4 cm MV Gradient Peak 3.9 mmHg MV Mean 1.1 mmHg MV Area cm COMMENTS: Clinical Specialist Vascular: Ayden ZAMBRANOOE Patrol Sergeant: 4 Dr. Cuellar TAPE# PACS Pericardial Effusion N DATE OF SERVICE: PROCEDURE: Transthoracic echocardiogram. FINDINGS: 1. Left ventricle shows evidence of left ventricular hypertrophy with inflow characteristics that are normal, ejection fraction is 55%. There is no obvious regional wall motion abnormalities. 2. Left atrium is normal. 3. Aortic valve is mildly thickened, otherwise normal. ECHOCARDIOGRAM REPORT [id number] MARÍA SALAMANCA 4. The mitral valve has trace mitral regurgitation, otherwise normal. 5. Tricuspid valve is normal. RVSP is normal. 6. The right ventricle is normal. 7. The right atrium is normal. 8. The pulmonic valve has trace to mild pulmonic insufficiency. 9. The pericardium appears to be normal. CONCLUSIONS: This is a normal echocardiogram for the patient's stated age. TRANSINT:[id number] Voice Confirmation ID: [id number] DOCUMENT ID: [id number] NAIMA CUELLAR MD at 0942 CC: [id number] DICTATION DATE: 02/28/18 0750 PADDED PRODUCTS INSPECTOR TRIMMER: 02/28/18 1203 DEP CLI 02/27/18 [facility] [address] [place] [address]
== END | disposition home or self-care (01) ==
LOC: D.ECHO 08:18
DX: I25.10 Atherosclerotic heart disease of native coronary artery without angina pectoris (principal); E78.5 Hyperlipidemia, unspecified; I50.9 Heart failure, unspecified; E11.9 Type 2 diabetes mellitus without complications

== ENCOUNTER 2018-10-09 07:57 | Observation (INO) | payer MEDICARE ==
[2018-10-09 08:34] LABS: BASOPHILS 0.5 % (0-2); EOSINOPHILS 3.5 % (0-7); HEMATOCRIT 35.9 % (42.0-54.0); HEMOGLOBIN 11.6 g/dL (13.5-17.5); IMMATURE GRANULOCYTES 0.9 % (0-5); LYMPHOCYTES 22.9 % (15-50); MCH 28.5 pg (26.0-34.0); MCHC 32.3 g/dL (31.0-37.0); MCV 88.2 fL (80.0-100.0); MEAN PLATELET VOLUME 9.2 fL (7.4-10.4); MONOCYTES 10.7 % (2-11); NEUTROPHILS 61.5 % (40-80); PLATELET COUNT 179 10x3/uL (130-400); RBC 4.07 10x6/uL (4.20-6.10); RDW 16.8 % (11.5-14.5); WBC 4.3 10x3/uL (4.8-10.8)
[2018-10-09 08:42] LABS: APTT 32.3 SECONDS (22.8-39.4); INR 1.1 (0.85-1.17); PROTIME 13.7 SECONDS (11.6-15.0)
[2018-10-09 08:51] LABS: ALKALINE PHOSPHATASE 81 U/L (46-116); ALT (SGPT) 16 U/L (10-68); BILIRUBIN - TOTAL 0.35 mg/dL (0.2-1.3); CALC OSMOLALITY 279 mosm/kg (275-300); CALCIUM 8.5 mg/dL (8.5-10.1); CHLORIDE - SERUM 102 mmol/L (98-107); CREATININE - SERUM 0.9 mg/dL (0.6-1.3); POTASSIUM - SERUM 3.2 mmol/L (3.5-5.1); PROTEIN - SERUM 7.3 g/dL (6.4-8.2); SODIUM 137 mmol/L (136-145); UREA NITROGEN 17 mg/dL (7-18); eGFR NON AFRICAN AMERICAN > 90 mL/min (90-120)
[2018-10-09 09:01] LABS: GLUCOSE 174 mg/dL (74-106)
[2018-10-09 09:02] LABS: AMYLASE - SERUM 76 U/L (25-115); CKMB 0.8 U/L (0.0-3.6); CREATINE KINASE 69 UL (21-232); LIPASE 214 U/L (73-393); MAGNESIUM - SERUM 1.9 mg/dL (1.8-2.4)
[2018-10-09 09:06] LABS: TROPONIN-I < 0.017 ng/mL (0.000-0.060)
[2018-10-10 05:51] LABS: BASOPHILS 0.2 % (0-2); EOSINOPHILS 4.7 % (0-7); HEMATOCRIT 34.5 % (42.0-54.0); IMMATURE GRANULOCYTES 0.4 % (0-5); LYMPHOCYTES 27.3 % (15-50); MCH 28.1 pg (26.0-34.0); MCHC 31.9 g/dL (31.0-37.0); MCV 88.2 fL (80.0-100.0); MEAN PLATELET VOLUME 9.3 fL (7.4-10.4); MONOCYTES 13.3 % (2-11); NEUTROPHILS 54.1 % (40-80); PLATELET COUNT 174 10x3/uL (130-400); RBC 3.91 10x6/uL (4.20-6.10); WBC 4.9 10x3/uL (4.8-10.8)
[2018-10-10 06:23] LABS: ALBUMIN 2.5 g/dL (3.4-5.0); ALKALINE PHOSPHATASE 69 U/L (46-116); ALT (SGPT) 14 U/L (10-68); CALCIUM 7.8 mg/dL (8.5-10.1); CARBON DIOXIDE 25.4 mmol/L (21.0-32.0); CHLORIDE - SERUM 106 mmol/L (98-107); CREATININE - SERUM 0.9 mg/dL (0.6-1.3); PROTEIN - SERUM 6.4 g/dL (6.4-8.2); SODIUM 139 mmol/L (136-145); eGFR NON AFRICAN AMERICAN > 90 mL/min (90-120)
[2018-10-10 06:26] LABS: CALC OSMOLALITY 274 mosm/kg (275-300); GLUCOSE 87 mg/dL (74-106); POTASSIUM - SERUM 3.8 mmol/L (3.5-5.1); UREA NITROGEN 8 mg/dL (7-18)
== END 2018-10-10 11:19 | disposition home or self-care (01) ==
LOC: D.ER 07:57 → D.M2 12:58
PROVIDERS: Family Medicine
DX: R55 Syncope and collapse (principal); E87.6 Hypokalemia; E11.9 Type 2 diabetes mellitus without complications; E78.00 Pure hypercholesterolemia, unspecified; D64.9 Anemia, unspecified; C18.9 Malignant neoplasm of colon, unspecified

== ENCOUNTER → 2018-11-28 16:40 | Outpatient (CLI) | payer MEDICARE ==
[2018-10-09 14:16] VITALS: BMI 23.6
[~2018-11-28 16:40] MED LIST changes: +REPATHA SY140 MG/1 M SC; +XARELTO20 MG PO
[2018-11-28 18:11] LABS: CHOL - HDL RATIO 2.7 ratio (2.3-4.9)
== END | disposition home or self-care (01) ==
LOC: D.LABREF 16:40
PROVIDERS: Internal Medicine Interventional Cardiology
DX: I25.10 Atherosclerotic heart disease of native coronary artery without angina pectoris (principal)

== ENCOUNTER 2020-01-08 08:39 | Emergency (ER) | payer MEDICARE ==
[~2020-01-08] VITALS: Ht 182.9 cm; Wt 72.7 kg
[2020-01-08 08:42] VITALS: Ht 182.9 cm; Wt 72.7 kg
[2020-01-08 09:25] LABS: ANION GAP 10.4 mmol/L (8-16); BASOPHILS 0.1 % (0-2); CALCIUM 9.1 mg/dL (8.5-10.1); CARBON DIOXIDE 25.5 mmol/L (21.0-32.0); CREATININE - SERUM 1.1 mg/dL (0.6-1.3); EOSINOPHILS 4.4 % (0-7); HEMOGLOBIN 10.1 g/dL (13.5-17.5); IMMATURE GRANULOCYTES 0.1 % (0-5); LYMPHOCYTES 16.6 % (15-50); MCH 24.4 pg (26.0-34.0); MCHC 31.6 g/dL (31.0-37.0); MCV 77.3 fL (80.0-100.0); MEAN PLATELET VOLUME 8.8 fL (7.4-10.4); MONOCYTES 6.4 % (2-11); NEUTROPHILS 72.4 % (40-80); POTASSIUM - SERUM 3.9 mmol/L (3.5-5.1); RBC 4.14 10x6/uL (4.20-6.10)
[2020-01-08 09:33] LABS: ALBUMIN 2.1 g/dL (3.4-5.0); BILIRUBIN - TOTAL 0.77 mg/dL (0.2-1.3); PROTEIN - SERUM 8.5 g/dL (6.4-8.2)
[2020-01-08 09:37] LABS: PLATELET COUNT 350 10x3/uL (130-400)
[2020-01-08 11:15] LABS: INR 3.08 (0.85-1.17); PROTIME 31.2 SECONDS (11.6-15.0)
[2020-01-08 11:16] LABS: APTT 108.9 SECONDS (22.8-39.4)
[2020-01-08 11:27] LABS: D-DIMER-QUANTITATIVE 1.87 ug/mLFEU (0.20-0.54)
[2020-01-08 11:35] LABS: CKMB 0.4 U/L (0.0-3.6); CREATINE KINASE 76 UL (21-232)
[2020-01-08 14:43] LABS: BILIRUBIN NEGATIVE (NEGATIVE); GLUCOSE NEGATIVE (NEGATIVE); KETONE NEGATIVE (NEGATIVE); NITRITE NEGATIVE (NEGATIVE); SPECIFIC GRAVITY 1.015 (1.005-1.020); UROBILINOGEN NORMAL (NORMAL)
[2020-01-08 14:46] LABS: BACTERIA FEW /hpf (NEGATIVE); EPITHELIAL CELLS OCC /hpf (0-5); RED CELLS - URINE RARE /hpf (0-5); WHITE CELLS - URINE OCC /hpf (NEGATIVE)
[2020-01-08 15:21] VITALS: BP 123/75
== END 2020-01-08 15:21 | disposition home or self-care (01) ==
LOC: D.ER 08:39
PROVIDERS: Family Medicine
DX: R55 Syncope and collapse (principal); R91.1 Solitary pulmonary nodule; W01.0XXA Fall on same level from slipping, tripping and stumbling without subsequent striking against object, initial encounter; I10 Essential (primary) hypertension; E11.9 Type 2 diabetes mellitus without complications; Z79.84 Long term (current) use of oral hypoglycemic drugs; Z95.5 Presence of coronary angioplasty implant and graft